=== PATIENT | male | born 1990 | race Hispanic/Latino ===

== ENCOUNTER 2018-03-25 23:00 | Emergency (ER) | payer BC, OTHER ==
[2018-03-25 23:07] VITALS: RESP 20; O2SAT 97
[2018-03-26] MEDS ORDERED: Sodium Chloride 0.9% 1,000 ML IV STA (00:39)
--- NOTE | 2018-03-26 00:43 | ED PDOC ---
HPI: Abdomen Time Seen by Provider: 03/26/18 00:24 Chief Complaint (Nursing): GI Problem Chief Complaint (Provider): abd pain, vomiting History Per: Patient History/Exam Limitations: no limitations Onset/Duration Of Symptoms: Hrs Current Symptoms Are (Timing): Still Present Location Of Pain/Discomfort: Diffuse Last Bowel Movement: Today Additional Complaint(s): 28 y/o male presents for evaluation of multiple episodes of vomiting x 1 day. Associated abdominal pain. Patient states he feels dehydrated and it is causing him to have anxiety. States he had several alcoholic beverages last night, unknown if related. Denies fever, chest pain, shortness of breath, palpitations, changes in bowel movements, urinary symptoms, recent travel, sick contacts. Patient unable to tolerate PO Past Medical History Reviewed: Historical Data, Nursing Documentation, Vital Signs Vital Signs: Last Vital Signs Temp 98.8 F 03/25/18 23:05 Pulse 126 H 03/25/18 23:05 Resp 20 03/25/18 23:05 BP 116/63 03/25/18 23:05 Pulse Ox 97 03/25/18 23:05 - Medical History PMH: Asthma - Surgical History Surgical History: No Surg Hx - Family History Family History: States: No Known Family Hx - Social History Current smoker - smoking cessation education provided: No Alcohol: Social Drugs: Denies - Immunization History Hx Tetanus Toxoid Vaccination: (needs tetanus) - Home Medications Home Medications: Ambulatory Orders Medication Instructions Recorded Amoxicillin 500 mg PO TID #21 cap 06/12/14 Pseudoephedrine [Sudafed Tab] 1 tab PO Q6 PRN #24 tab 06/12/14 Acyclovir [Zovirax] 800 mg PO BID #10 tab 08/04/14 Albuterol HFA [Ventolin HFA 90 1 puff IH Q4 PRN #1 unit 08/04/14 mcg/actuation (8 g)] Famotidine [Pepcid] 20 mg PO BID #10 tab 03/26/18 Ondansetron ODT [Zofran ODT] 4 mg PO Q8 PRN #10 odt 03/26/18 - Allergies Allergies/Adverse Reactions: Allergies Allergy/AdvReac Type Severity Reaction Status Date / Time shrimp Allergy ANAPHYLAXIS Verified 03/25/18 23:04 Review of Systems ROS Statement: Except As Marked, All Systems Reviewed And Found Negative Gastrointestinal: Positive for: Nausea, Vomiting, Abdominal Pain Physical Exam - Reviewed Nursing Documentation Reviewed: Yes Vital Signs Reviewed: Yes - Physical Exam Appears: Positive for: Well, Non-toxic, No Acute Distress Head Exam: Positive for: ATRAUMATIC, NORMAL INSPECTION, NORMOCEPHALIC Skin: Positive for: Normal Color Eye Exam: Positive for: Normal appearance ENT: Positive for: Normal ENT Inspection Cardiovascular/Chest: Positive for: Regular Rate, Rhythm Respiratory: Positive for: Normal Breath Sounds Gastrointestinal/Abdominal: Positive for: Bowel Sounds, Soft, Tenderness (epigastric, RLQ) Back: Positive for: Normal Inspection Extremity: Positive for: Normal ROM Neurologic/Psych: Positive for: Alert, Oriented (x3) - Laboratory Results Result Diagrams: 03/26/18 01:06 03/26/18 01:06 - ECG O2 Sat by Pulse Oximetry: 97 - Progress ED Course And Treament: -cbc -cmp -lipase -urinalysis -ct abd/pelvis -IV NS bolus -IV zofran CT SCAN OF THE ABDOMEN AND PELVIS WITH CONTRAST. CLINICAL HISTORY: Abdominal pain. Vomiting. TECHNIQUE: Multiple axial and coronal CT images were obtained through the abdomen and pelvis after administration of intravenous contrast material. COMMENTS: Fluid-filled stomach. Fluid-filled small bowels. The liver is of uniform attenuation without mass or defect. There is no intra or extrahepatic biliary ductal dilatation. The spleen is normal. The gallbladder is within normal limits. The pancreas is of normal contour and attenuation characteristics. There is no evidence of adrenal mass. Both kidneys demonstrate prompt and equal nephrograms. The kidneys are normal in size, shape and configuration. There is no evidence of renal or ureteral mass. No renal or ureteral calculi are identified. There is no hydroureter or hydronephrosis. No evidence for appendicitis. There is no bowel wall thickening. No evidence for small or large bowel obstruction. There is no evidence of abdominal ascites or lymphadenopathy. There is no evidence of intrinsic or extrinsic bladder mass. There is no pelvic ascites or lymphadenopathy. Images of the lung bases show no evidence of pleural or parenchymal mass. There are no pleural effusions. The bony structures are free of lytic or blastic lesions. IMPRESSION: Uncomplicated gastroenteritis. On re-eval, patient states he is feeling better. Tolerating PO Patient educated on findings, discharged with rx Pepcid, Zofran Advised increase fluid intake. Harper diet Follow up with PMD within 2-3 days Return precautions given Disposition - Clinical Impression Clinical Impression: Gastroenteritis - Patient ED Disposition Is Patient to be Admitted: No Counseled Patient/Family Regarding: Studies Performed, Diagnosis, Need For Followup, Rx Given - Disposition Referrals: [facility] [Outside] Disposition: Routine/Home Disposition Time: 04:40 Condition: IMPROVED Prescriptions: Famotidine [Pepcid] 20 mg PO BID #10 tab Ondansetron ODT [Zofran ODT] 4 mg PO Q8 PRN #10 odt PRN Reason: Nausea/Vomiting Instructions: Viral Gastroenteritis Forms: [employer] (Latvian)
[2018-03-26 01:10] LABS: BASO % 0.3 % (0.0-2.0); EOS # 0.1 K/uL (0.0-0.7); EOS % 0.6 % (0.0-4.0); LYMPH # 0.3 K/uL (1.0-4.3); LYMPH % 3.4 % (20.0-40.0); MEAN CELL VOLUME 95.9 fl (80.0-94.0); MEAN CORPUSCULAR HEMOGLOBIN 33.2 pg (27.0-31.0); MEAN CORPUSCULAR HGB CONC 34.6 g/dL (33.0-37.0); MONO # 0.6 K/uL (0.0-0.8); MONO % 5.6 % (0.0-10.0); NEUT # 9.2 K/uL (1.8-7.0); NEUT % 90.1 % (50.0-75.0); PLATELET COUNT 211 K/uL (130-400); RBC 4.82 Mil/uL (4.40-5.90); RED CELL DISTRIBUTION WIDTH 12.9 % (11.5-14.5); WHITE BLOOD COUNT 10.2 K/uL (4.8-10.8)
[2018-03-26 01:17] LABS: ALB/GLOB RATIO 1.3 (1.0-2.1); ALBUMIN 4.9 g/dL (3.5-5.0); ALT/SGPT 52 U/L (21-72); AST/SGOT 37 U/L (17-59); BLOOD UREA NITROGEN 14 mg/dl (9-20); CALCIUM 9.6 mg/dL (8.4-10.2); GFR NON-AFRICAN AMERICAN > 60; LIPASE 67 U/L (23-300)
[2018-03-26 01:22] LABS: SQUAMOUS EPITHIAL < 1 /hpf (0-5); URINE BILIRUBIN NEGATIVE (NEGATIVE); URINE BLOOD NEGATIVE (NEGATIVE); URINE CLARITY SLIGHTY-CLOUDY (Clear); URINE COLOR YELLOW (YELLOW); URINE GLUCOSE (UA) NEG (NEGATIVE); URINE LEUKOCYTE ESTERASE NEG Leu/uL (Negative); URINE PROTEIN NEGATIVE (NEGATIVE)
[2018-03-26 01:27] LABS: BARBITURATES, UR NEGATIVE (NEGATIVE); BENZODIAZEPINES, UR POSITIVE (NEGATIVE); OPIATES, UR NEGATIVE (NEGATIVE); PHENCYCLIDINE, UR NEGATIVE (NEGATIVE)
[2018-03-26] MEDS ORDERED: Iohexol 300 100 ML IJ ONE (02:23)
[2018-03-26] MEDS ORDERED: Sodium Chloride 0.9% 50 ML IV ONE (02:24)
[2018-03-26 03:19] LABS: ANISOCYTOSIS SLIGHT; BANDS 5 % (0-2); LYMPHOCYTE 2 % (20-50); MONOCYTE 5 % (0-10); NEUTROPHIL 88 % (42-75); PLATELET ESTIMATE NORMAL (NORMAL); STOMATOCYTES SLIGHT; TEARDROP CELLS SLIGHT; TOTAL CELLS COUNTED 100
[2018-03-26 04:34] VITALS: BP 124/75; PULSE 99; TEMP 99.6
--- NOTE | 2018-03-26 09:05 | CT ---
Date of service: 03/26/2018 PROCEDURE: CT Abdomen and Pelvis with contrast HISTORY: abd pain, vomiting COMPARISON: None. TECHNIQUE: Following the intravenous administration of iodinated contrast material, a CT examination of the abdomen and pelvis was performed from the domes of the diaphragms to the symphysis pubis with reformatted datasets provided in axial, sagittal and coronal planes. Oral contrast was not administered as per referring physician request. Contrast dose: Omnipaque 300, 90 cc Radiation dose: Total exam DLP = 403.82 mGy-cm. This CT exam was performed using one or more of the following dose reduction techniques: Automated exposure control, adjustment of the mA and/or kV according to patient size, and/or use of iterative reconstruction technique. FINDINGS: LOWER THORAX: Unremarkable. LIVER: Diminished attenuation is seen throughout the liver compatible with hepatic steatosis. No mass or intrahepatic biliary dilatation is identified. GALLBLADDER AND BILE DUCTS: Unremarkable. PANCREAS: Unremarkable. No gross lesion or ductal dilatation. SPLEEN: Unremarkable. ADRENALS: Unremarkable. No mass. KIDNEYS AND URETERS: Unremarkable. No hydronephrosis. No solid mass. VASCULATURE: Unremarkable. No aortic aneurysm. No aortic atherosclerotic calcification or mural plaque present. BOWEL: Fluid is seen distending the stomach with the stomach otherwise unremarkable appearing. Normal caliber small large-bowel is appreciated with fluid scattered throughout the small bowel. Borderline proximal small bowel mural thickening is in question though this is not definite. Remaining small bowel is unremarkable. Limited retained fecal material is appreciated at the distal large bowel. No perienteric or pericolic reactive changes identified. APPENDIX: Normal appendix. PERITONEUM: Unremarkable. No free fluid. No free air. LYMPH NODES: Unremarkable. No enlarged lymph nodes. BLADDER: Unremarkable. REPRODUCTIVE: Unremarkable. BONES: No acute fracture. OTHER FINDINGS: None. IMPRESSION: 1. Borderline proximal segmental enteritis. 2. Hepatic steatosis. Preliminary report provided by Bony, 03/26/2018, 3:29 a.m..
== END 2018-03-26 05:05 | disposition home or self-care (01) ==
LOC: H.ER 23:00
DX: K52.9 Noninfective gastroenteritis and colitis, unspecified (principal)
CPT/HCPCS: 74177; 80053; 81003; 83690; 85025; 96361; 96374; 99284; G0480; J7030; Q9967